=== PATIENT | female | born 1990 | race Caucasian/White ===

== ENCOUNTER 2019-06-13 13:23 | Emergency (ER) | payer OTHER ==
--- NOTE | 2019-06-13 13:32 | Emergency Department Record ---
History of Present Illness - General Chief Complaint: Abdominal Pain Stated Complaint: ABD PAIN Time Seen by Provider: 06/13/19 13:26 Source: Patient, Family Mode of Arrival: Ambulatory Limitations: No limitations - History of Present Illness Initial Comments: 28 yo female presents from the [facility] with abdominal pain. She states she noted some umbilical pain in the mornings starting on Monday. The pain was worse in the morning then seemed to improve during the day. Today she noticed some small amount of diarrhea, sharper right sided pain and now some RLQ pain starting later morning. She has a decreased appetite. No vomiting. The diarrhea was minimal without blood. No abdominal surgery history. MD Complaint: Abdominal pain -: Days(s) (4) Location: RLQ Radiation: RLQ Migration to: RLQ Severity: Mild Quality: Aching Consistency: Constant Improves With: Nothing Worsens With: Eating Context: Other Associated Symptoms: Anorexia, Diarrhea (mild) - Related Data Patient : No Allergies Allergy/AdvReac Type Severity Reaction Status Date / Time No Known Drug Allergies Allergy Verified 06/13/19 13:34 Review of Systems Constitutional: Denies: Chills, Fever, Malaise, Weakness Eyes: Denies: Eye discharge, Eye pain, Photophobia, Vision change ENT: Denies: Congestion, Throat pain Respiratory: Denies: Cough, Dyspnea, Hemoptysis, Wheezes Cardiovascular: Denies: Chest pain, Palpitations, Syncope Endocrine: Denies: Fatigue, Polydipsia, Polyuria Gastrointestinal: Reports: As per HPI, Abdominal pain, Diarrhea (mild, one episode), Nausea. Denies: Constipation, Vomiting Genitourinary: Denies: Abnormal menses, Discharge, Dysuria, Retention, Urgency Musculoskeletal: Denies: Arthralgia, Back pain, Myalgia Skin: Denies: Bruising, Change in color, Rash Neurological: Denies: Headache Psychiatric: Denies: Anxiety Hematological/Lymphatic: Denies: Easy bleeding, Easy bruising Physical Exam - General General Appearance: Alert, Oriented x3, Cooperative, No acute distress Limitations: No limitations - Head Head exam: Atraumatic, Normal inspection - Eye Eye exam: Normal appearance. negative: Conjunctival injection - ENT ENT exam: Normal exam, Mucous membranes moist Ear exam: Normal external inspection Nasal Exam: Normal inspection Mouth exam: Normal external inspection - Neck Neck exam: Normal inspection - Respiratory Respiratory exam: Normal lung sounds bilaterally. negative: Respiratory distress - Cardiovascular Cardiovascular Exam: Regular rate, Normal rhythm, Normal heart sounds - GI/Abdominal GI/Abdominal exam: Soft, Tenderness (mild tenderness in the RLQ, soft, non tender umbilicus, no rebound or guarding.). negative: Distended, Guarding, Rebound, Rigid - Rectal Rectal exam: Deferred - exam: Deferred - Extremities Extremities exam: Normal inspection. negative: Tenderness - Back Back exam: Denies: CVA tenderness (R), CVA tenderness (L) - Neurological Neurological exam: Alert, Oriented X3 - Psychiatric Psychiatric exam: Normal affect, Normal mood - Skin Skin exam: Dry, Intact, Normal color, Warm Course - Reevaluation(s) Reevaluation #1: 06/13/19 14:07 The labs were reviewed No acute changes on the CBC, CMP, UA The UCG is negative 06/13/19 14:09 The patient still has RLQ tenderness so CT was ordered. 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 06/13/19 16:10 The case was discussed with Dr Segovia. The patient is minimally symptomatic with no signs of obstruction. Given this clinically not consistent acute volvulus with her minimal symptoms he believes with her chronic constipation this may be more of a congenital finding. She is eating and drinking. No vomiting. She has a long history of intermittent constipation. Given she is mi nimally symptomatic with out clinical or CT evidence of obstruction no need for admission at this time per Dr Segovia. He recommends returning if any symptoms. The results were discussed with the patient and family. We discussed returning to the ED in the next one day if she has any pain, vomiting, fever or new concerns. 06/13/19 18:35 Medical Decision Making - Lab Data Result diagrams: 06/13/19 13:43 06/13/19 13:43 Disposition Disposition: Discharge Clinical Impression: Cecal bascule Constipation Qualifiers: Constipation type: unspecified constipation type Qualified Code(s): K59.00 - Constipation, unspecified Abdominal pain Qualifiers: Abdominal location: unspecified location Qualified Code(s): R10.9 - Unspecified abdominal pain Disposition: Home, Self-Care Condition: (1) Good Instructions: Constipation (ED), Abdominal Pain (ED) Additional Instructions: Return immediately if you have fever, pain, vomiting, or significant changes in bowel movements Call for a new family doctor in [place] when you return Stay well hydrated Forms: Patient Portal Access Time of Disposition: 16:15 Quality - Quality Measures Quality Measures: N/A - Blood Pressure Screening Does Patient Have Any of the Following: No Blood Pressure Classification: Normal BP Reading Systolic Measurement: 114 Diastolic Measurement: 79 Screening for High Blood Pressure: < Normal BP, F/U Not Required > [G8783]
[2019-06-13] MEDS ORDERED: ONDANSETRON HCL IV 4 MG/2 ML VIAL IVP ONE (13:38)
[2019-06-13] MEDS ORDERED: KETOROLAC 30 MG/ML VIAL IVP ONE (13:38)
[2019-06-13] MEDS ORDERED: 0.9 % SODIUM CHLORIDE 1000ML 1,000 ML IV ONE (13:38)
[2019-06-13 13:50] LABS: ABSOLUTE NEUTROPHIL COUNT 3.91; BASO % 0.4 % (0-6); EOS % 1.6 % (0-6); GRAN % 57.5 % (47-80); HEMATOCRIT 39.8 % (35.0-47.0); HEMOGLOBIN 12.6 gm/dl (11.6-16.0); LYMPH % 34.8 % (16-45); MEAN CELL VOLUME 90.9 fl (81-97); MEAN CORPUSCULAR HEMOGLOBIN 28.8 pg (27-33); MEAN CORPUSCULAR HGB CONC 31.7 g/dl (32-36); MONO % 5.7 % (0-9); PLATELET COUNT 327 K/uL (130-400); RED BLOOD COUNT 4.38 M/uL (3.80-5.40); RED CELL DISTRIBUTION WIDTH 13.3 % (11.5-14.5); WHITE BLOOD COUNT W/O DIFF 6.8 K/uL (4.2-12.2)
[2019-06-13 13:54] LABS: URINE APPEARANCE CLEAR; URINE BILIRUBIN NEGATIVE (NEGATIVE); URINE BLOOD MODERATE (NEGATIVE); URINE COLOR YELLOW; URINE GLUCOSE (UA) NEGATIVE (NEGATIVE); URINE KETONE NEGATIVE (NEGATIVE); URINE LEUKOCYTE ESTERASE NEGATIVE (NEGATIVE); URINE NITRITE NEGATIVE (NEGATIVE); URINE PROTEIN NEGATIVE (NEGATIVE); URINE UROBILINOGEN 0.2 E.U./dL (0.20 - 1.00)
[2019-06-13 14:00] LABS: HCG,QUALITATIVE URINE NEGATIVE (NEGATIVE); URINE BACTERIA NONE SEEN; URINE WBC NONE SEEN (0-2/hpf)
[2019-06-13 14:01] LABS: BLOOD UREA NITROGEN 8 mg/dL (6-20); CREATININE 0.7 mg/dL (0.5-0.9); EST GLOMERULAR FILTRATION RATE > 60 mL/min
[2019-06-13 14:02] LABS: TOTAL PROTEIN 7.1 g/dL (6.6-8.7)
[2019-06-13 14:04] LABS: GLUCOSE,RANDOM 87 mg/dL (74-109)
[2019-06-13 14:07] LABS: ALB/GLOB RATIO 1.7 (1.1-1.8); ALBUMIN 4.5 g/dL (4.0-5.0); ALKALINE PHOSPHATASE 50 U/L (35-104); ALT/SGPT 11 U/L (<33); AST/SGOT 17 U/L (10.0-35.0)
--- NOTE | 2019-06-14 07:25 | CT SCAN REPORT ---
EXAM: CT OF THE ABDOMEN AND PELVIS WITH IV CONTRAST HISTORY: RIGHT LOWER QUADRANT PAIN TODAY, TENDER FOR THREE DAYS. NO HISTORY OF SURGERY. TECHNIQUE: CT of the abdomen and pelvis was conducted with IV and oral contrast with reconstruction of coronal and central planes. The amount and type of IV contrast are noted within the patient's medical record. Comparison: No prior exams available for comparison. FINDINGS: The lung bases are clear. The liver appears normal in size, no contour or nodularity identified. Subcentimeter segment for a focus appears consistent with small cyst. The gallbladder appears unremarkable. The kidneys, adrenals, pancreas and spleen appear within normal limits. No biliary ductal dilatation is identified. There are findings appearing consistent with cecal bascule volvulus with a large amount of stool within an anterior and superior right upper quadrant positioned cecum. Enteric contrast is present throughout the small bowel with scattered gas, however, no significant dilatation or evidence of small bowel obstruction is identified. The appendix is not clearly identified. There is minimal inflammatory fat stranding involving the posterior aspects of the ascending colon without significant bowel wall thickening. Minimal distal colonic stool and gas is present. The aorta appears normal in size, the portal vein appears patent. Mesenteric vessels appear within normal limits. Minimal pelvic free fluid is present, no adenopathy. Retroverted uterus is present with an IUD noted. No adnexal mass is evident. The abdominal wall appears within normal limits. The osseous structures appear within normal limits. Findings consistent with Grade 1 anterior spondylolisthesis of L5 and S1. IMPRESSION: 1. 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 THE APPENDIX IS NOT CLEARLY IDENTIFIED. 2. MILD INFLAMMATORY FAT STRANDING ALONG THE POSTERIOR ASPECTS OF THE ASCENDING COLON WITHOUT SIGNIFICANT BOWEL WALL THICKENING. NO SMALL BOWEL OBSTRUCTION IDENTIFIED. JOB NUMBER: [id number] [facility]
== END 2019-06-13 16:31 | disposition home or self-care (01) ==
LOC: ER 13:23
DX: K56.2 Volvulus (principal); K59.00 Constipation, unspecified; R10.31 Right lower quadrant pain; R19.7 Diarrhea, unspecified
CPT/HCPCS: 99284 ×2; 96374; 96375; 96361; 85025; 80053; 81001; 81025; 74177; Q9967; J1885; J2405; J7030